=== PATIENT | female | born 1990 | race Caucasian/White ===

== ENCOUNTER 2022-09-18 08:03 | Emergency (ER) | payer OTHER ==
[~2022-09-18] VITALS: Ht 177.8 cm; Wt 139.9 kg
[2022-09-18] MEDS ORDERED: SUMA50TA2 PO (08:13)
[2022-09-18] MEDS ORDERED: diphenhydrAMINE 50MG/ML VIAL IV STA (09:53)
[2022-09-18] MEDS ORDERED: NS 1,000 ML IV ONE (09:55)
[2022-09-18] MEDS ORDERED: KETOROLAC 30 MG/ML 1ML VIAL IV ONE (09:55)
[2022-09-18] MEDS ORDERED: METOCLOPRAMIDE INJ 10MG/2ML VIAL IV ONE (09:55)
[2022-09-18 12:23] VITALS: BP 120/73
== END 2022-09-18 12:51 | disposition home or self-care (01) ==
LOC: M ED 08:03
DX: R51.9 Headache, unspecified (principal)
CPT/HCPCS: 70450; 96374; 96375; 99284; J1200; J1885; J2765